=== PATIENT | female | born 1960 | race Caucasian/White ===

== ENCOUNTER 2016-10-12 10:16 | Emergency (ER) | payer OTHER ==
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
[~2016-10-12 10:16] MED LIST: ABILIFY PO; ALAVERT10 M1; ALBUTEROL17 G1 IH; AMITIZA8 MCG PO; AMLODIPINE BESY10 MG; ANIMAL SHAPES1 EAC2; ASPIRIN81 M1 PO; ASPIRIN81 M2; ATELVIA35 MG; ATENOLOL PO; BACLOFEN10 MG; BACTROBAN15 GM TOP; CALCIUM 500 +1 EAC2; CHLORPROMAZINE10 MG; CLARITIN10 M3; CYMBALTA PO; DOXYCYCLINE HY100 M3 PO; DYAZIDE 37.5/251 CAP PO; DYRENIUM50 MG; FLEXERIL PO; FLEXERIL10 MG PO; GLIPIZIDE10 MG PO; GLUCOTROL PO; HYDROCODON-ACE1 EA11; IRON325 ( 652 PO; KLONOPIN PO; KLONOPIN1 MG; LAMOTRIGINE; LANTUS100 U/M1; LANTUS100 U/ML SUBQ; LEXAPRO PO; LINZESS145 MCG; LOPID600 MG PO; LORTAB 10/500 T1 TAB PO; MELOXICAM15 MG; MELOXICAM15 MG PO; METFORMIN PO; MIRAPEX; MOBIC PO; NEURONTIN PO; NEXIUM PO; OMEPRAZOLE20 M1; ONGLYZA5 MG PO; PANTOPRAZOLE SO40 MG; PHENERGAN PO; PHENERGAN25 M1; POLYIRON; PREDNISONE10 MG PO; PRILOSEC; PROAIR HFA8.5 GM; PROAIR HFA8.5 GM IH; PROMETHAZINE HC25 MG PO; SYNTHROID0.05 MG; THIORIDAZINE HC25 MG PO; THORAZINE25 MG PO; TRIAMTERENE-HC1 EACH PO; VASOTEC PO; VICTOZA0.6 MG/0.1; VICTOZA0.6 MG/0.1 SUBQ; WELLBUTRIN; WELLBUTRIN100 MG PO; ZANTAC150 M1 PO
== END 2016-10-12 12:19 | disposition home or self-care (01) ==
LOC: SED 10:16
DX: S16.1XXA Strain of muscle, fascia and tendon at neck level, initial encounter (principal); S33.5XXA Sprain of ligaments of lumbar spine, initial encounter; S23.3XXA Sprain of ligaments of thoracic spine, initial encounter; F17.200 Nicotine dependence, unspecified, uncomplicated; I10 Essential (primary) hypertension; E11.9 Type 2 diabetes mellitus without complications; F32.9 Major depressive disorder, single episode, unspecified; F41.9 Anxiety disorder, unspecified; V43.62XA Car passenger injured in collision with other type car in traffic accident, initial encounter; Y92.410 Unspecified street and highway as the place of occurrence of the external cause
CPT/HCPCS: 72040; 72072; 72100; 73502; 99284

== ENCOUNTER → 2016-10-30 | Outpatient (CLI) | payer OTHER ==
[~2016-10-30] MED LIST changes: +BIPOLAR MEDICATION
--- NOTE | ~2016-10-30 | MY29 ---
[facility] A Service of [facility] RADIOLOGY TEXT RESULTS PATIENT: DIONISIO BENITEZ LOCATION: [facility] : 62 UNIT #: [id number] AGE: [address]: Megha Waldrop MD SEX: F ORDER DR: [id number] [facility] [address] [place], [place] [address] [id number] O MR#: [id number] Acc #: [id number] NAME: DIONISIO BENITEZ. : 1960 SEX: F STUDY DATE/TIME: 10/30/2016 15:06 UNIT: [facility] ROOM: STUDY DESCRIPTION: MY PACO SCREENING W/ CAD BILAT Attending Physician: Megha Waldrop M.D. Ordering Physician: Megha Waldrop M.D. Primary Care Physician: Megha Waldrop M.D. MEDICAL IMAGING REPORT This report is preliminary unless electronic signature is present EXAM Digital screening mammogram 10/30/2016. HISTORY 56-year-old woman, positive family history, mother and grandmother. Annual screen. COMPARISON Mammograms date to 06/03/2005 with most recent comparison 10/17/2015 FINDINGS Digital imaging of each breast was completed utilizing a two-view examination of each breast in craniocaudal and mediolateral-oblique projections. Review and interpretation of digital mammograms include a second review in conjunction with FDA-approved CAD device. There is a normal parenchymal presentation bilaterally consistent with the patient's age. There are no breast masses imaged and no parenchymal asymmetry is visualized. There are no suspicious microcalcifications and I see no focal architectural disturbance. IMPRESSION Negative screening digital mammogram. One-year followup recommended. Patients over the age of 40 are entered into a reminder system with target due date for the next mammogram. A result letter will also be sent to the patient. BIRADS: 1 Negative ADDENDUM Breast parenchyma is fatty replaced. Dictated by... [facility] A Service of [facility] & [facility] RADIOLOGY TEXT RESULTS PATIENT: DIONISIO BENITEZ LOCATION: [facility] : 62 UNIT #: [id number] AGE: [address]: Megha Waldrop MD SEX: F ORDER DR: Gopi Armstrong M.D. THIS IS AN ELECTRONICALLY VERIFIED REPORT Gopi Armstrong M.D. at 11/02/2016 8:12 AM Diego TD: 10/30/2016 17:40 JOB #: [id number] MEDICAL IMAGING REPORT Page 1 of 1 COPY
== END | disposition home or self-care (01) ==
LOC: CWCC 10-23 13:45
DX: Z12.31 Encounter for screening mammogram for malignant neoplasm of breast (principal); Z80.3 Family history of malignant neoplasm of breast; R92.8 Other abnormal and inconclusive findings on diagnostic imaging of breast
CPT/HCPCS: G0202

== ENCOUNTER 2016-12-16 17:23 | Emergency (ER) | payer OTHER ==
[~2016-12-16 17:23] MED LIST changes: -BIPOLAR MEDICATION
[2016-12-16] MEDS ORDERED: BIPOLAR MEDICATION (17:28)
== END 2016-12-16 18:08 | disposition home or self-care (01) ==
LOC: SED 17:23
DX: H66.91 Otitis media, unspecified, right ear (principal); K11.20 Sialoadenitis, unspecified; E11.9 Type 2 diabetes mellitus without complications; I10 Essential (primary) hypertension; J44.9 Chronic obstructive pulmonary disease, unspecified; K21.9 Gastro-esophageal reflux disease without esophagitis; F32.9 Major depressive disorder, single episode, unspecified; Z79.4 Long term (current) use of insulin; Z79.82 Long term (current) use of aspirin; Z79.899 Other long term (current) drug therapy; Z88.0 Allergy status to penicillin; Z88.8 Allergy status to other drugs, medicaments and biological substances
CPT/HCPCS: 99283